=== PATIENT | male | born 1975 | race Caucasian/White ===

== ENCOUNTER 2018-09-10 09:19 | Outpatient (CLI) | payer OTHER ==
--- NOTE | 2018-09-10 10:39 | MRI Report ---
Reason: PARESTHESIA OF SKIN Procedure Date: 09/10/2018 Accession Number: [id number] / [id number] Procedure: MRI - Cervical Spine W/O CPT Code: FULL RESULT: EXAM: MRI CERVICAL SPINE WITHOUT CONTRAST EXAM DATE: 09/10/2018 10:07 AM. CLINICAL HISTORY: Neck pain with numbness. COMPARISONS: None. TECHNIQUE: Multiplanar, multisequence T1-weighted and fluid-sensitive sequences of the cervical spine without contrast. Other: None. FINDINGS: Neurologic Structures: The visualized posterior fossa structures are unremarkable. No signal abnormality in the visualized spinal cord. Alignment: No scoliosis or spondylolisthesis. Bone Marrow: No gross fractures or bone lesions. No marrow edema. Interspace Levels/Facets: C1-C2: Unremarkable. C2-C3: No disk bulge or protrusion. No canal or foraminal stenosis. Moderate facet arthropathy. C3-C4: Very shallow broad-based disk-osteophyte complex without canal or foraminal stenosis. C4-C5: Very shallow broad-based disk-osteophyte complex without canal or foraminal stenosis. C5-C6: Shallow broad-based disk-osteophyte complex with asymmetric left greater than right uncovertebral hypertrophy, resulting in severe left and moderate right foraminal stenosis. Partial effacement of the ventral CSF without deforming the cord. C6-C7: Shallow broad-based disk-osteophyte complex partially effaces ventral CSF without deforming the cord. Uncovertebral and mild facet arthropathy results in moderate-severe bilateral foraminal stenosis. C7-T1: Unremarkable. Musculature: Normal. No edema or fatty atrophy. Other: The paravertebral and prevertebral soft tissues are normal. IMPRESSION: 1. At C5-C6, there is mild spinal canal stenosis with severe left and moderate right foraminal stenosis secondary to a broad-based disk-osteophyte complex with asymmetric left uncovertebral hypertrophy. 2. At C6-C7, there is mild spinal canal and moderate-severe bilateral foraminal stenosis secondary to a broad-based disk-osteophyte complex. RAD[facility]
== END 2018-09-10 09:20 | disposition home or self-care (01) ==
LOC: DI 09:19
PROVIDERS: ATTEND Radiology Diagnostic Radiology
DX: M48.02 Spinal stenosis, cervical region (principal); M25.78 Osteophyte, vertebrae
CPT/HCPCS: 72141

== ENCOUNTER 2021-03-12 15:19 | Outpatient (CLI) | payer OTHER ==
[2021-03-12 16:28] VITALS: BP 127/93
--- NOTE | 2021-03-12 16:28 | SLEEP CARE CONSULTATION ---
Information from patient questionnaire entered by Letty Rolon. I have reviewed and concur with the information entered by Letty Rolon. This document represents the service I personally performed and the decisions made by me, Kayley Carlos ARNP. History of Present Illness Service Date and Time: 03/12/2021 1519 Reason for Visit: New patient Chief Complaint: reports: Unrefreshed sleep, Snoring, Excessive daytime sleepiness, Observed pauses in breathing, Fatigue, Frequent awakenings at night Date of Onset: 2 years, worse since 2019 Usual bedtime: 9:00 Time it takes to fall asleep: 4 to 5 hours if at all Snores at night: Yes Observed to quit breathing while asleep: Yes (in the past) Sleeps alone due to snoring: No Number of times waking at night: 3 to 4 times Reasons for waking at night: reports: Other (Unknown reason). denies: Choking, Snoring, Gasping for air Toss, Turn, or Twitch while sleeping: Yes Recalls having dreams: No Usually gets out of bed at: 6-8 Feels refreshed in the morning: No Morning headache: Yes (sometimes; 2-3 times a week) Sleepy or fatigued during the day: Yes Ever fallen asleep while driving: Yes (drowsy driving) Takes day naps: No Dreams during day naps: No Prior sleep studies: No Additional HPI information: I had the pleasure of seeing IRMA JASSO today regarding the possibility of him having a sleep disorder. His current complaints are excessive daytime sleepiness, fatigue, frequent night awakenings, snoring, and unrefreshed sleep. He only able to get 4 hours of sleep a night. He wakes up frequently at night. He states he can take hours for him to get to sleep. He will then wake up frequently, almost every hour and then not be able to sleep after 4 hours or so of sleep. He wakes up feeling tired. His has told him he snores. In the past she has told him he has pauses in breathing but she is a pretty sound sleeper now and has not told him that this has happened more recently. He saw his PCP due to his sleeping issues and was encouraged to look at his sleep hygiene. He tried changing his nightly sleep hygiene for 2 weeks but this did not seem to help. He was given a prescription for Zolpidem to use to go to sleep but he states it sometimes helps and sometimes doesn't. He has also tried melatonin without improvement of sleeping or his frequent night awakenings. He states when he wakes up at night, he is wide awake and has no idea what has woken him up. He denies choking or gasping for air when awoken. - Parasomnia Symptoms Ever been unable to move upon waking from sleep: No Walks in sleep: No Talks in sleep: Yes (sometimes) Ever acted out dreams in sleep: No Ever felt weak in the knees when startled or emotional: Yes Bothered by creepy, crawly, restless sensations in legs: No Problems with memory or concentration: No Subjective Initial [place] Sleepiness Scale score: 0 (in 2020) Past Medical History Past Medical History: reports: Anxiety, Depression (PTSD, neck pain, arm pain, back pain, leg ? foot pain), Mood disorder (PTSD) Social History The patient's occupation is active duty in the [employer]. Patient is and lives in [place]. Have you smoked in the past 12 months: No Cigarettes per day (20/pack): 2 Years of smokin Quit date: 2016 Smoking Pack Years: 2.0 Alcohol use: Yes Alcohol amount and frequency: 2 beers every couple weeks Caffeine use: Yes Caffeine amount and frequency: 1/2 pot daily Family History Family history of sleep disordered breathing: Yes Family Hx Sleep Apnea: Mother: Snoring, Sleep apnea - Untreated, Grandparent: Snoring, Sleep apnea - Untreated Allergies and Home Medications Home medication list reviewed: Yes (NKDA) Allergy and home medication list: Zolpidem, prn sleep Rabeprazole Motrin, prn Review of Systems Weight gain over past 5 years: 50 Cardiovascular: denies: high blood pressure Gastrointestinal: reports: heartburn Neurological: denies: headaches Psychiatric: reports: anxiety, depression, other (PTSD) Ear/Nose/Throat: reports: wisdom teeth removed. denies: injury to nose, tonsillectomy Endocrine: reports: sluggishness (tired). denies: thyroid disease Musculoskeletal: reports: neck pain, back pain, muscle pain or cramping Physical Exam Blood Pressure: 127/93 Cuff size: wrist Heart Rate: 71 O2 Saturation: 99 Height: 6 ft Weight: 235 lb Body Mass Index: 31.8 BMI Classification: Obese Neck circumference: 17 (inches) Mouth and throat: narrow oropharynx Soft palate: long Hard palate: normal Uvula visualization: 50% Mallampati Class II Tongue: enlarged in size with teeth abad on lateral edges Tonsils: 1+ Chin and jaw: normal size and position Neck: normal w/o lymphadenopathy or thyromegaly Heart: regular rate and rhythm, murmur Lungs: clear bilaterally Impression and Plan 1. Suspected Obstructive Sleep Apnea-Hypopnea Syndrome, as suggested by a history of loud and irregular snoring, observed cessation of breath while asleep, frequent awakening during the night, unrefreshed sleep, and excessive daytime sleepiness. Narrow oropharynx and obesity are common predisposing factors for obstructive sleep apnea-hypopnea syndrome. I recommend proceeding to polysomnography to confirm the diagnosis and to assess severity. If the patient has significant sleep disordered breathing, a manual CPAP titration study will also be performed to find the optimal treatment pressure. I informed the patient of what the sleep studies involve and after some discussion, obtained agreement to proceed. The pathophysiology of obstructive sleep apnea-hypopnea syndrome was discussed with the patient and health risks of cardiovascular and cerebrova scular disease if not treated. AASM brochure for obstructive sleep apnea- hypopnea syndrome given and reviewed. Risks of drowsy driving discussed in detail and patient advised to avoid long distance driving and to sinker puller at the first sign of drowsiness. Patient agreed to plan. * Schedule polysomnography +- manual CPAP titration study and return in 1-2 weeks after the study to discuss result and initiate therapy. * Avoid long distance driving or driving when feeling sleepy. * Avoid alcohol, sedative and muscle relaxant around bedtime. * Attempt to lose weight. * Review instructions provided by trained office staff on how to prepare for the sleep study. * Return for follow-up after sleep study completed. Counseling Topics: Weight loss health impact Visit Type: In Office Time Spent with Patient (minutes): 32 Provider Statement: I spent 100% of the Face to Face Visit with the patient with greater than 50% spent counseling the patient and coordination of care.
== END 2021-03-12 15:20 | disposition home or self-care (01) ==
LOC: SC 15:19
PROVIDERS: ATTEND Nurse Practitioner Family
DX: R06.83 Snoring (principal); R06.81 Apnea, not elsewhere classified; G47.10 Hypersomnia, unspecified; E66.9 Obesity, unspecified; Z68.31 Body mass index [BMI] 31.0-31.9, adult
CPT/HCPCS: 99203; 99212

== ENCOUNTER 2021-03-19 12:44 | Outpatient (CLI) | payer OTHER | END 2021-03-19 12:45 | disposition home or self-care (01) | LOC: SC 12:44 | PROVIDERS: ATTEND Nurse Practitioner Family | DX: G47.33 Obstructive sleep apnea (adult) (pediatric) (principal); R09.02 Hypoxemia | CPT/HCPCS: 95806 ==

== ENCOUNTER 2021-03-28 14:33 | Outpatient (CLI) | payer OTHER ==
--- NOTE | 2021-03-28 15:25 | SLEEP CARE CONSULTATION ---
Information from patient questionnaire entered by Lizzy Chavez. I have reviewed and concur with the information entered by Lizzy Chavez. This document represents the service I personally performed and the decisions made by , Kayley Carlos ARNP. History of Present Illness Service Date and Time: 03/28/2021 1433 Initial [place] Sleepiness Scale score: 0 (in 2020) Current [place] Sleepiness Scale score: 1 Additional HPI information: IRMA JASSO returns for follow up and results of the recently performed home sleep study. I explained the pathophysiology behind obstructive sleep apnea. We then spent quite a bit of time discussing different treatment options. For mild obstructive sleep apnea, surgery and oral appliance are alternatives to nasal CPAP therapy but in moderate or severe cases, nasal CPAP is the most effective and reliable treatment. Because apnea is primarily in supine position, then positional management therapy could be effective. Methods discussed such as positioning with pillows, using a T-shirt with tennis balls in the back, and shown commercial products that have a pillow format on back to prevent supine sleep. I reviewed the impact of weight changes on sleep apnea and strongly recommended losing weight. After some discussion, the patient opted to go with the nasal CPAP therapy. Nasal autoCPAP set at 4-15 cmH20 will be ordered with rationale explained. A manual titration study will be ordered if unable to find optimal pressure with office adjustments. I explained how CPAP machine works with sample devices [employer]ics Dreamstation and [employer] [id number] and what to expect when using the machine. Using CPAP every night in order to get used to it was emphasized. Patient advised to put CPAP mask on before getting into bed so as not to fall asleep without CPAP. To assist acclimation to CPAP use, it could also be used for a short time during day while reading or watching TV. The patient was instructed to call the CPAP supplier to discuss any mechanical problem that may occur. If the mask given is uncomfortable or is difficult to keep on through the night even with adjustment, contact the CPAP supplier as many will replace with another mask style if notified before 30 days. If snoring or perceives is not getting enough air or too much air from the machine, notify this office. [facility] patient education PAP tips reviewed and given to patient. Patient counseled not drink alcohol less than 4 hours before bedtime as it can increase snoring and apnea. Patient was cautioned about risks of drowsy driving until sleepiness symptoms resolve. Sleep Study - Results Type of Sleep Study: Home sleep study Prior sleep studies: No Polysomnography/Home Sleep Study results: Physician Impression: The quality of the study is good. The length of the study is adequate (> 240 minutes). Please also see the tabulated and graphic data. 1. Obstructive Sleep Apnea-Hypopnea (ICD-10 G47.33), mild, with an AHI of 6.1/hr and néstor SaO2 of 87%. During the study, the patient had 3 apneas (3 obstructive, 0 central, 0 mixed) and 25 hypopneas. The longest episode lasted 129.5 seconds. The patient only slept supine during this study (supine AHI was 0 and non-supine, 6.05). 2. Hypoxemia (ICD-10 R09.02), mild, with the lowest oxygen saturation of 87 % and 8.7 minutes with SaO2 under 90%. Baseline oxygen saturation was normal (Average oxygen saturation was 93%). Allergies and Home Medications Home medication list reviewed: Yes (Gabapentin for back/nerve pain) Review of Systems Review of systems same as previous: Yes (no changes) Physical Exam Heart Rate: 91 O2 Saturation: 96 Height: 6 ft Weight: 241 lb Body Mass Index: 32.6 BMI Classification: Obese Impression and Plan 1. Obstructive Sleep Apnea-Hypopnea Syndrome, mild, with lowest oxygen saturation of 87%. Obviously this is the cause of the patients symptoms of unrefreshed sleep, and excessive daytime sleepiness. Positive pressure therapy could benefit anxiety, depression and mood disorder (PTSD). As mentioned above, the patient will be started on nasal autoCPAP therapy with pressure set at 4-15 cmH2O. A manual titration study will be completed if unable to find optimal treatment pressure with office adjustments. Compliance guidelines also reviewed. A copy of compliance guidelines will be given for reference at check out. 2. Hypoxemia, mild, with the lowest oxygen saturation of 87 % and 8.7 minutes with SaO2 under 90%. His baseline oxygen saturation was normal with an average oxygen saturation of 93%. * Nasal auto CPAP therapy, pressure at 4-15 cm H2O. * Attempt to lose weight. * Avoid alcohol consumption near bedtime. * Avoid supine sleep until using CPAP. * The patient is again cautioned about driving until sleepiness completely resolves. * Return one month after CPAP obtained. I will assess response to therapy and compliance at that time. Counseling Topics: Weight loss health impact Visit Type: In Office Time Spent with Patient (minutes): 20 Provider Statement: I spent 100% of the Face to Face Visit with the patient with greater than 50% spent counseling the patient and coordination of care.
== END 2021-03-28 14:34 | disposition home or self-care (01) ==
LOC: SC 14:33
PROVIDERS: ATTEND Nurse Practitioner Family
DX: G47.33 Obstructive sleep apnea (adult) (pediatric) (principal); E66.9 Obesity, unspecified; Z68.32 Body mass index [BMI] 32.0-32.9, adult
CPT/HCPCS: 99212; 99213

== ENCOUNTER 2021-05-16 13:33 | Outpatient (CLI) | payer OTHER ==
--- NOTE | 2021-05-16 15:28 | MRI Report ---
PROCEDURE: Brain W/WO INDICATIONS: HEADACHE, TINNITUS CONTRAST: IV CONTRAST: Gadavist ml: 10.6 TECHNIQUE: Noncontrast axial T1 spin echo, axial T2 fast spin echo, sagittal and axial FLAIR, coronal T2 fast sp in echo, axial gradient echo, axial diffusion and ADC through the brain. After the administration of contrast, axial and coronal T1 spin echo with fat saturation through the brain. COMPARISON: Correlation is made with the overlapping portions of prior cervical spine MRI, 09/10/2018 . FINDINGS: Image quality: Excellent. CSF spaces: Basal cisterns are patent. No extra-axial fluid collections. Ventricles are normal in size and shape. Brain: No midline shift. No intracranial bleeds or masses. No abnormal intracranial enhancement. There is cerebral volume loss for age. There is periventricular white matter chronic small vessel is chemic change. The brainstem appears normal. Diffusion-weighted images demonstrate no acute ischemi c insults. No chronic ischemic insults. Normal intravascular flow voids are present. In this patient with this given history, scrutiny is given to the cerebellopontine angle cisterns and to the internal auditory canals. To the limits of this standard protocol study, no masses or abnorma l enhancement can be seen within these regions. Skull and face: Calvarial marrow is normal in signal. Orbits appear normal. Sinuses: Sinuses and mastoids appear clear. IMPRESSION: No imaging explanation is found for the patient's presenting symptoms. Reviewed by: Bassam Maya MD on 05/16/2021 2:26 PM FEI Approved by: Bassam Maya MD on 05/16/2021 2:26 PM [facility]IR[facility] Station ID: [id number]
== END 2021-05-16 13:34 | disposition home or self-care (01) ==
LOC: DI 13:33
DX: R51.9 Headache, unspecified (principal); H93.19 Tinnitus, unspecified ear
CPT/HCPCS: 70553; A9585

== ENCOUNTER 2021-06-12 12:52 | Outpatient (CLI) | payer OTHER ==
--- NOTE | 2021-06-12 13:31 | SLEEP CARE CONSULTATION ---
Information from patient questionnaire entered by Graciela Maldonado. I have reviewed and concur with the information entered by Graciela Maldonado. This document represents the service I personally performed and the decisions made by , Kayley Carlos ARNP. History of Present Illness Service Date and Time: 06/12/2021 1252 Previous diagnosis: Mild, Obstructive Sleep Apnea-Hypopnea Syndrome AHI: 6.1 Reason for follow up: first compliance Equipment obtained from: [facility] (got initial supplies) Mask style: Full face Backup mask available: No (will need to keep old mask when replaced) Last cushion change: 1 month Prior sleep studies: Yes Year and Where: 02/2021 [facility] Type of Sleep Study: Home sleep study HPI additional information: IRMA JASSO was diagnosed to have mild, AHI 6.1, obstructive sleep apnea- hypopnea syndrome and returned today for CPAP therapy first compliance follow- up. CPAP Compliance Data - Data Reviewed with Patient Average duration of nightly device use: 4 hours 35 minutes Compliance rate %: 100 Current pressure setting (cmH2O): 5-15 (median 5.4, avg 7.5, max 8.7) Average residual AHI: 2 Central apnea: 1.1 Obstructive apnea: .5 Hypopnea: .3 Subjective Patient concerns: reports: mask discomfort, nasal congestion (sneezes a lot at first then goes away), other (can't sleep with mask). denies: aerophagia, air blowing in eyes, mask leak noise, condensation in mask/hose, dry mouth, nose, throat, epistaxis Observed to snore while using device: No Current pressure setting perceived as: too low (he thnks) On therapy, patient: reports: sleeping better, awakening more refreshed, being more awake and alert during the day, more rested overall. denies: drowsiness while driving Initial [place] Sleepiness Scale score: 0 (in 2020) Current [place] Sleepiness Scale score: 13 Allergies and Home Medications Home medication list reviewed: Yes (Unisom for sleep) Review of Systems Review of systems same as previous: Yes (no changes) Physical Exam Heart Rate: 81 O2 Saturation: 96 Height: 6 ft Weight: 250 lb Body Mass Index: 33.9 BMI Classification: Obese Impression and Plan 1. Obstructive Sleep Apnea-Hypopnea Syndrome, mild, with excellent treatment co mpliance and good apnea control. On CPAP therapy, the patient has better sleep quality and is more rested overall. He states he is not sure what is making him sleep better the CPAP or taking the Unisom to go to sleep. He states he was taking Unisom prior to using the CPAP and it has improved since he started the CPAP. He thinks he might be getting used to the mask on his face. He has had several difficulties in using the mask. He states he will put it on and does go to sleep fairly quickly but then feels like he is waking up every 20 minutes because the mask is irritating his face. He is using a fullface mask that goes over the bridge of the nose. I think he would do better with a AirFit F 30i and will write for him to try this mask. Patient encouraged to call and talk to his DME supplier since he needs supplies and he has not yet set up with them. I will adjust patient's pressure to reflect those pressures being used to 5-8 cmH2O. Patient encouraged to call me if change in pressure is uncomfortable for further adjustment. Patient's apnea severity and rationale for treatment to reduce apnea, improve sleep quality and reduce cardiovascular and cerebrovascular events was reviewed. I also reviewed the benefit of consistent device use of CPAP for depression, anxiety and mood disorder (PTSD). * Try an AirFit 30i full face mask * Change auto CPAP pressure to 5-8 cmH2O * Notify me if snoring with mask or feeling that the pressure is too much or too little * Attempt to lose weight * Call this office if any problems using CPAP * Return for follow up in 1-2 months, or sooner if concerns arise Counseling Topics: Spare mask, Weight loss health impact Visit Type: In Office Time Spent with Patient (minutes): 27 Provider Statement: I spent 100% of the Face to Face Visit with the patient with greater than 50% spent counseling the patient and coordination of care.
== END 2021-06-12 12:53 | disposition home or self-care (01) ==
LOC: SC 12:52
PROVIDERS: ATTEND Nurse Practitioner Family
DX: G47.33 Obstructive sleep apnea (adult) (pediatric) (principal); E66.9 Obesity, unspecified; Z68.33 Body mass index [BMI] 33.0-33.9, adult
CPT/HCPCS: 99212; 99213

== ENCOUNTER 2021-08-08 13:36 | Outpatient (CLI) | payer OTHER ==
[2021-08-08 14:08] VITALS: BP 129/97
--- NOTE | 2021-08-08 14:08 | SLEEP CARE CONSULTATION ---
Information from patient questionnaire entered by Pool Bueno MA. I have reviewed and concur with the information entered by Pool Bueno MA. This document represents the service I personally performed and the decisions made by , Kayley Carlos ARNP. History of Present Illness Service Date and Time: 08/08/2021 1336 Previous diagnosis: Mild, Obstructive Sleep Apnea-Hypopnea Syndrome (qhj) AHI: 6.1 Reason for follow up: other (7 WEEK F/U, PRESSURE CHANGE) Equipment type: CPAP Equipment obtained from: [facility] (hasn't gotten any new supplies yet, knows he needs to call) Mask style: Full face Backup mask available: No (will keep old mask when replaced) Prior sleep studies: No Type of Sleep Study: Home sleep study HPI additional information: IRMA JASSO was diagnosed to have mild, AHI 6.1, obstructive sleep apnea- hypopnea syndrome and returned today for CPAP therapy 7 week with pressure change follow-up. Sleep Study - Results Type of Sleep Study: Home sleep study Prior sleep studies: No CPAP Compliance Data - Data Reviewed with Patient Average duration of nightly device use: 5 HOURS 18 MINUTES Compliance rate %: 100 Current pressure setting (cmH2O): 5-8 Average residual AHI: 1.5 Central apnea: .9 Obstructive apnea: .4 Subjective Patient concerns: reports: mask discomfort (getting used to it but will try a different style when he is eligible to get it), nasal congestion. denies: aerophagia, air blowing in eyes, mask leak noise, condensation in mask/hose, dry mouth, nose, throat, epistaxis, other Observed to snore while using device: No Current pressure setting perceived as: comfortable On therapy, patient: reports: sleeping better, awakening more refreshed, being more awake and alert during the day, more rested overall. denies: drowsiness while driving Initial [place] Sleepiness Scale score: 0 (in 2020) Current [place] Sleepiness Scale score: 4 (IN 2020) Allergies and Home Medications Home medication list reviewed: Yes (no changes) Review of Systems Review of systems same as previous: Yes (no changes) Physical Exam Vital signs obtained and entered by: JOSE BANEGAS Blood Pressure: 129/97 (left) Cuff size: wrist Heart Rate: 73 O2 Saturation: 96 (with mask) Height: 6 ft Weight: 240 lb (information per PT) Body Mass Index: 32.5 BMI Classification: Obese Impression and Plan 1. Obstructive Sleep Apnea-Hypopnea Syndrome, mild, with excellent treatment compliance and good apnea control. On CPAP therapy, the patient has better sleep quality and is more rested overall. He has not yet been able to try a different mask that we talked about but he is getting more comfortable with the full face mask and his treatment. He still has issues with falling asleep and is taking one (pill) Unisom and then reading to get to sleep. He feels this is working well although he fell asleep faster when he was taking 2 pills of the Unisom. He is feeling more rested in the mornings but admits he still has a reluctance to get up. He is retiring from the and does not have a schedule to keep. Patient's apnea severity and rationale for treatment to reduce apnea, improve sleep quality and reduce cardiovascular and cerebrovascular events was reviewed. I also reviewed the benefit of consistent device use of CPAP for depression, anxiety and mood disorder (PTSD). Patient was encouraged to lose weight for their overall health and to reduce apneas. * Continue auto CPAP pressure at 5-8 cmH2O * Notify me if snoring with mask or feeling that the pressure is too much or too little * Attempt to lose weight * Call this office if any problems using CPAP * Return for follow up in 3 months, or sooner if concerns arise Counseling Topics: Spare mask, Weight loss health impact Visit Type: In Office Time Spent with Patient (minutes): 13 Provider Statement: I spent 100% of the Face to Face Visit with the patient with greater than 50% spent counseling the patient and coordination of care.
== END 2021-08-08 13:37 | disposition home or self-care (01) ==
LOC: SC 13:36
PROVIDERS: ATTEND Nurse Practitioner Family
DX: G47.33 Obstructive sleep apnea (adult) (pediatric) (principal); E66.9 Obesity, unspecified; Z68.32 Body mass index [BMI] 32.0-32.9, adult
CPT/HCPCS: 99212

== ENCOUNTER 2022-06-11 13:53 | Outpatient (CLI) | payer OTHER ==
--- NOTE | 2022-06-11 14:19 | SLEEP CARE CONSULTATION ---
Information from patient questionnaire entered by Bela Harrell MA. I have reviewed and concur with the information entered by Bela Harrell MA. This document represents the service I personally performed and the decisions made by , Kayley Carlos ARNP. History of Present Illness Service Date and Time: 06/11/2022 1353 Previous diagnosis: Mild, Obstructive Sleep Apnea-Hypopnea Syndrome (qhj) AHI: 6.1 Equipment type: CPAP Equipment obtained from: [employer] ([employer]) Mask style: Full face Mask brand: Resmed (F20) Backup mask available: Yes (old mask) Last cushion change: 1 month Prior sleep studies: Yes Year and Where: 02/2021 [facility] Type of Sleep Study: Home sleep study HPI additional information: IRMA JASSO was diagnosed to have mild, AHI 6.1, obstructive sleep apnea- hypopnea syndrome and returned today for CPAP therapy 10 month follow-up. Sleep Study - Results Type of Sleep Study: Home sleep study Prior sleep studies: Yes Year and Where: 02/2021 [facility] CPAP Compliance Data - Data Reviewed with Patient Average duration of nightly device use: 5 hour 23 minutes Compliance rate %: 99 (180/180 days used) Current pressure setting (cmH2O): 5-8 Average residual AHI: 1.1 Central apnea: 0.8 Obstructive apnea: 0.2 Subjective Missed days of use due to: reports: illness Patient concerns: reports: condensation in mask/hose, dry mouth, nose, throat (when trying to fall asleep, then clears up). denies: aerophagia, mask discomfort, air blowing in eyes, mask leak noise, nasal congestion, epistaxis Observed to snore while using device: No Current pressure setting perceived as: comfortable On therapy, patient: reports: sleeping better, awakening more refreshed, being more awake and alert during the day, more rested overall. denies: drowsiness while driving Initial [place] Sleepiness Scale score: 0 (in 2020) Current [place] Sleepiness Scale score: 15 (avg) Allergies and Home Medications Drug allergies reviewed: Yes (NKDA) Home medication list reviewed: Yes (no changes) Review of Systems Review of systems same as previous: Yes (no changes) Physical Exam Vital signs obtained and entered by: ADIEL KRAMER Blood Pressure: 142/88 Cuff size: regular Heart Rate: 80 O2 Saturation: 96 Height: 5 ft 11 in Weight: 215 lb 8 oz Weight change since last visit: 20 lb loss Body Mass Index: 30.0 BMI Classification: Obese Impression and Plan 1. Obstructive Sleep Apnea-Hypopnea Syndrome, mild, with good treatment compliance and good apnea control. On CPAP therapy, the patient has better sleep quality and is more rested overall. Patient has significant improvement of their sleep apnea and are satisfied with current CPAP therapy. Patient states he does have some dry mouth but this resolves after he initially started using his CPAP. He occasionally gets some condensation and I explained to him how to adjust his heated hose. He voiced understanding. Patient's apnea severity and rationale for treatment to reduce apnea, improve sleep quality and reduce cardiovascular and cerebrovascular events was reviewed. I also reviewed the benefit of consistent device use of CPAP for depression, anxiety and PTSD. 2. Obesity, unspecified. He states that he has lost 20 pounds since retiring. Currently patients BMI is 30.0. Obesity increases the risk of apnea, CPAP pressure requirements and overall health risks especially cardiovascular and diabetes. Thus patient is advised to lose weight. Weight loss can be done with reducing portion size, reducing refined foods and balancing content with vegetables, fruit and whole grain foods. In addition, patient encouraged to get regular exercise. * Continue auto CPAP pressure at 5-8 cmH2O * Update supplies * Notify me if snoring with mask or feeling that the pressure is too much or too little * Attempt to lose weight * Call this office if any problems using CPAP * Return for follow up in 1 year, or sooner if concerns arise Counseling Topics: Spare mask, Weight loss health impact Visit Type: In Office Time Spent with Patient (minutes): 21 Provider Statement: I spent 100% of the Face to Face Visit with the patient with greater than 50% spent counseling the patient and coordination of care.
[2022-06-11 14:20] VITALS: BP 142/88
== END 2022-06-11 13:54 | disposition home or self-care (01) ==
LOC: SC 13:53
PROVIDERS: ATTEND Nurse Practitioner Family
DX: G47.33 Obstructive sleep apnea (adult) (pediatric) (principal); E66.9 Obesity, unspecified; Z68.30 Body mass index [BMI] 30.0-30.9, adult
CPT/HCPCS: 99212; 99213

== ENCOUNTER 2023-09-16 15:01 | Outpatient (CLI) | payer OTHER ==
--- NOTE | 2023-09-16 15:19 | Sleep Patient Instructions ---
Sleep Center Visit Summary - Patient Visit Information Reason for Visit: Annual Visit - Patient Instructions Additional Instructions: You will continue with CPAP therapy with pressure set at 5-8 cmH2O. A supply prescription will be updated with your DME. We encourage you to continue to try to lose weight. Please follow up with the sleep care office in 1 year. - Clinic Information Contact: [facility] [address] [place] [address] [email or web address] T: [phone]
--- NOTE | 2023-09-16 15:21 | SLEEP CARE CONSULTATION ---
Information from patient questionnaire entered by Edwina Lees. I have reviewed and concur with the information entered by Edwina Lees. This document represents the service I personally performed and the decisions made by me, Kayley Carlos ARNP. History of Present Illness Service Date and Time: 09/16/2023 1501 Previous diagnosis: Mild, Obstructive Sleep Apnea-Hypopnea Syndrome (qhj) AHI: 6.1 Reason for follow up: annual (LAST SEEN 05/2022) Equipment type: CPAP (ResMed Airsense 11; s/u ) Equipment obtained from: [employer] ([employer]) Mask style: Full face Mask brand: Resmed (AirFit F20, large cushion) Backup mask available: Yes Last cushion change: couple days ago Prior sleep studies: Yes Year and Where: 02/2021 [facility] Type of Sleep Study: Home sleep study HPI additional information: IRMA JASSO was diagnosed to have mild, AHI 6.1, obstructive sleep apnea- hypopnea syndrome and returned today for CPAP therapy annual follow-up. Sleep Study - Results Type of Sleep Study: Home sleep study Prior sleep studies: Yes Year and Where: 02/2021 [facility] CPAP Compliance Data - Data Reviewed with Patient Average duration of nightly device use: 5 HRS 55 MINS Compliance rate %: 100 (09/15/2022-09/14/23; 365/365 days used) Current pressure setting (cmH2O): 5-8 Average residual AHI: 1.0 Central apnea: 0.7 Obstructive apnea: 0.1 Average large leak: 13.4 L/min Subjective Patient concerns: denies: aerophagia, mask discomfort, air blowing in eyes, mask leak noise, condensation in mask/hose, nasal congestion, dry mouth, nose, throat, epistaxis Observed to snore while using device: No Current pressure setting perceived as: comfortable On therapy, patient: reports: sleeping better, awakening more refreshed, being more awake and alert during the day, more rested overall. denies: drowsiness while driving Initial [place] Sleepiness Scale score: 0 (in 2020) Current [place] Sleepiness Scale score: 0 (09/16/23) Allergies and Home Medications Known drug allergies: No Drug allergies reviewed: Yes Home medication list reviewed: Yes (no changes) Allergy and home medication list: Allergies No Known Drug Allergies Allergy (Verified 09/15/23 14:23) Review of Systems Review of systems same as previous: Yes (NO CHANGE) Physical Exam Vital signs obtained and entered by: EDWINA Florence MA Blood Pressure: 121/81 (RIGHT ARM) Cuff size: regular Heart Rate: 65 O2 Saturation: 99 Height: 5 ft 11 in Weight: 238 lb Body Mass Index: 33.2 BMI Classification: Obese Impression and Plan 1. Obstructive Sleep Apnea-Hypopnea Syndrome, mild, with good treatment compliance and good apnea control. On CPAP therapy, the patient has better sleep quality and is more rested overall. Patient has significant improvement of their sleep apnea and is satisfied with current CPAP therapy. Patient denies problems with oral dryness, nasal congestion, epistaxis, skin irritation or aerophagia. We will follow up with him next year. Patient's apnea severity and rationale for treatment to reduce apnea, improve sleep quality and reduce cardiovascular and cerebrovascular events was reviewed. I also reviewed the benefit of consistent device use of CPAP for depression, anxiety and PTSD. 2. Obesity, unspecified. Currently patients BMI is 33.2. Obesity increases the risk of apnea, CPAP pressure requirements and overall health risks especially cardiovascular and diabetes. Thus patient is advised to lose weight. * Continue auto CPAP pressure at 10-16 cmH2O * Update supply prescription * Notify me if snoring with mask or feeling that the pressure is too much or too little * Attempt to lose weight * Call this office if any problems using CPAP * Return for follow up in 12 months, or sooner if concerns arise Counseling Topics: Spare mask, Weight loss health impact Prescriptions: Device supplies Follow up with Sleep Care in: 1 year Visit Type: In Office Time Spent with Patient (minutes): 11 Provider Statement: I spent 100% of the Face to Face Visit with the patient with greater than 50% spent counseling the patient and coordination of care.
[2023-09-16 15:22] VITALS: BP 121/81; O2SAT 99
== END 2023-09-16 15:02 | disposition home or self-care (01) ==
LOC: SC 15:01
PROVIDERS: ATTEND Nurse Practitioner Family
DX: G47.33 Obstructive sleep apnea (adult) (pediatric) (principal); E66.9 Obesity, unspecified; Z68.33 Body mass index [BMI] 33.0-33.9, adult
CPT/HCPCS: 99212